=== PATIENT | female | born 1945 | race Caucasian/White ===

== ENCOUNTER 2018-11-29 10:55 | Inpatient (IN) | payer MEDICARE ==
[~2018-11-29] VITALS: Ht 154.9 cm; Wt 64.0 kg
[2018-11-29] VITALS (12 sets, daily range): BP systolic 85–105; BP diastolic 49–61
--- NOTE | 2018-11-29 11:26 | NUR ---
DR WOLFE GAVE VERBAL ORDER TO CONTINUE THE 700 UNITS/HR OF HEPARIN
[2018-11-29] MEDS ORDERED: heparin 25,000 UNIT/250ml bag 250 ML IV SCH ×2 (11:29→16:17)
[2018-11-29] MEDS ORDERED: morphine 4 MG/ML inj SYRINge IV ONE (11:30)
[2018-11-29] MEDS ORDERED: heparin 10,000 units/1 ML INJ IV PRN (11:30)
[2018-11-29] MEDS ORDERED: ondansetron/PF 4mg/2ml inj IV ONE (11:30)
[2018-11-29] MEDS ORDERED: heparin 10,000 units/1 ML INJ IV ONE (11:30)
[2018-11-29] MEDS ORDERED: magnesium Cl slow-release 64mg tablet PO PRN (11:55)
[2018-11-29] MEDS ORDERED: mag hydrox/Alum hydrox/simeth 30ml oral suspension PO PRN (11:55)
[2018-11-29] MEDS ORDERED: nitroGLYCERIN 0.4mg SUBLingual tab SL PRN (11:55)
[2018-11-29] MEDS ORDERED: potassium CL 10mEq/100ml bag 100 ML IV PRN ×4 (11:55→16:05)
[2018-11-29] MEDS ORDERED: metoprolol tartrate 1mg/ml inj IV ONE (11:55)
[2018-11-29] MEDS ORDERED: magnesium 4gm in 100ml NS 100 ML IV PRN (11:55)
[2018-11-29] MEDS ORDERED: acetaminophen 325mg tablet PO PRN ×3 (11:55→16:05)
[2018-11-29] MEDS ORDERED: morphine 2 MG/ML inj. syringe IV PRN ×3 (11:55→16:05)
[2018-11-29] MEDS ORDERED: nitroGLYCERIN-Tridil 50MG/D5W 250 ML IV PRN (11:55)
[2018-11-29] MEDS ORDERED: ondansetron/PF 4mg/2ml inj IV PRN ×2 (11:55→16:05)
[2018-11-29] MEDS ORDERED: magnesium hydroxide 30ml (MOM) UD suspension PO PRN (11:55)
[2018-11-29] MEDS ORDERED: magnesium 2GM in 50ml NS 50 ML IV PRN (11:55)
[2018-11-29] MEDS ORDERED: potassium Cl 20 mEq SR tablet PO PRN ×4 (11:55→16:05)
--- NOTE | 2018-11-29 11:58 | NUR ---
DR GREEN AT THE BEDSIDE
[2018-11-29] MEDS ORDERED: ZOLP10TA5 PO (12:11)
[2018-11-29] MEDS ORDERED: CHOL2000 PO (12:11)
[2018-11-29] MEDS ORDERED: FLUO20CA39 PO (12:11)
[2018-11-29] MEDS ORDERED: AMIT-189 PO (12:11)
[2018-11-29] MEDS ORDERED: OMEP40CA13 PO (12:11)
[2018-11-29] MEDS ORDERED: ARIP10TA15 PO (12:11)
[2018-11-29 12:12] LABS: BASOPHILS # (AUTO) 0.1 X10'3 (0-0.2); BASOPHILS % (AUTO) 0.4 % (0-1); EOSINOPHILS % (AUTO) 0 % (0-6); HEMATOCRIT 48.3 % (35.0-45.0); HEMOGLOBIN 16.1 g/dl (12.0-16.0); LYMPHOCYTES # (AUTO) 0.8 X10'3 (1.1-4.8); LYMPHOCYTES % (AUTO) 4.7 % (21-51); MEAN CORPUSCULAR HEMOGLOBIN 32.7 PG (27.0-31.0); MEAN CORPUSCULAR HGB CONC 33.4 g/dL (33.0-36.5); MEAN PLATELET VOLUME 7.6 FL (7.4-10.4); MONOCYTES # (AUTO) 1.1 X10'3 (0-0.9); MONOCYTES % (AUTO) 6.7 % (2-12); NEUTROPHILS # (AUTO) 14.5 X10'3 (1.8-7.7); NEUTROPHILS % (AUTO) 88.2 % (42-75); PLATELET COUNT 308 X10'3 (140-440); RED BLOOD COUNT 4.93 X10'6 (4.20-5.60); RED CELL DISTRIBUTION WIDTH 13.3 % (11.5-14.5); WHITE BLOOD COUNT 16.5 X10'3 (4.5-11.0)
[2018-11-29] MEDS: normal saline 1000ml 1,000 ML IV SCH ×3 (12:19→22:22)
[2018-11-29 12:47] LABS: PARTIAL THROMBOPLASTIN TIME > 139 SECONDS (22-32)
[2018-11-29 12:57] LABS: ALANINE AMINOTRANSFERASE 38 U/L (12-78); ALBUMIN 3.7 G/DL (3.4-5.0); ALBUMIN/GLOBULIN RATIO 0.9 (1.1-1.5); ALKALINE PHOSPHATASE 76 IU/L (46-116); ANION GAP 17 (8-16); ASPARTATE AMINO TRANSFERASE 31 U/L (10-37); BILIRUBIN,TOTAL 0.7 MG/DL (0.1-1.0); BLOOD UREA NITROGEN 13 MG/DL (7-18); BUN/CREATININE RATIO 9.6 (6.6-38.0); CALCIUM 9.8 MG/DL (8.5-10.1); CHLORIDE 104 MMOL/L (99-107); CHOL/HDL RATIO 2.2 (0.00-4.99); CHOLESTEROL 214 MG/DL (0-200); CREATININE 1.36 MG/DL (0.40-0.90); GLUCOSE 145 MG/DL (70-104); HDL CHOLESTEROL 97 MG/DL (35-60); LDL CHOLESTEROL 98 MG/DL (50-100); MAGNESIUM 1.5 MG/DL (1.5-2.4); POTASSIUM 4.8 MMOL/L (3.5-5.1); SODIUM 135 MMOL/L (135-145); TRIGLYCERIDES 50 MG/DL (20-135); eGFR 38 ML/MIN
[2018-11-29] MEDS ORDERED: fentaNYL/PF 50MCG/1 ML 2ML syringe ONE (13:05)
[2018-11-29] MEDS ORDERED: midazolam 2 mg/2 ml injection ONE (13:05)
[2018-11-29 13:06] LABS: TOTAL CARBON DIOXIDE 14.1 MMOL/L (24-32)
[2018-11-29] MEDS ORDERED: LIDOcaine 1% (10mg/ml)w/preservative injection 20ml MDV ONE (13:53)
[2018-11-29] MEDS ORDERED: iohexol 350MG/ML 100ml bottle IV ONE (13:54)
[2018-11-29] MEDS ORDERED: iohexol 350 MG/ML 50ML vial IV ONE (13:54)
--- NOTE | 2018-11-29 14:15 | NUR ---
Pt. to room 2007 from minilab operator. Waylon MCGRAW at bedside to give report. Pt. has angioseal to right groin. Dressing CDI. VSS.
[2018-11-29] MEDS ORDERED: proCHLORperazine 10 MG/2 ml inj IV PRN (14:25)
[2018-11-29] MEDS ORDERED: OXAZEpam 15mg capsule PO PRN (14:25)
[2018-11-29 14:55] LABS: HEMOGLOBIN A1C 5.5 % (4.5-6.2)
[2018-11-29] MEDS ORDERED: morphine 4 MG/ML inj SYRINge IV PRN (16:05)
[2018-11-29] MEDS ORDERED: HYDROcodone/acetaminophen 5mg/325mg tablet PO PRN (16:05)
[2018-11-29 17:19] LABS: ALANINE AMINOTRANSFERASE 32 U/L (12-78); ALBUMIN/GLOBULIN RATIO 0.8 (1.1-1.5); ALKALINE PHOSPHATASE 61 IU/L (46-116); ANION GAP 14 (8-16); ASPARTATE AMINO TRANSFERASE 28 U/L (10-37); BILIRUBIN,TOTAL 0.6 MG/DL (0.1-1.0); BLOOD UREA NITROGEN 14 MG/DL (7-18); BUN/CREATININE RATIO 10.4 (6.6-38.0); CALCIUM 9.6 MG/DL (8.5-10.1); CHLORIDE 106 MMOL/L (99-107); CREATININE 1.35 MG/DL (0.40-0.90); GLUCOSE 120 MG/DL (70-104); POTASSIUM 4.9 MMOL/L (3.5-5.1); SODIUM 137 MMOL/L (135-145); TOTAL CARBON DIOXIDE 17.5 MMOL/L (24-32); TOTAL PROTEIN 6.7 G/DL (6.4-8.2); eGFR 38 ML/MIN
[2018-11-29] MEDS: HYDROcodone/acetaminophen 5mg/325mg tablet PO PRN (18:15)
--- NOTE | 2018-11-29 18:20 | NUR ---
Patient in room CICU 2007. I have received report from MARILUZ Johnson and had the opportunity to ask questions and assume patient care. Patient is sitting up in bed talking to friend, she is A&O x3, HELLER and is appropriate. She is complaining of some chest pain 09/02, I have just given her a [place]. I will continue to monitor.
[2018-11-29] MEDS ORDERED: zolpidem 5mg tablet PO PRN (19:35)
[2018-11-29] MEDS ORDERED: glucagon, human recombinant 1mg kit SUBCUT PRN (19:50)
[2018-11-29] MEDS ORDERED: dextrose 50%-water 50ml dispensing syringe IV PRN ×2 (19:50)
[2018-11-29] MEDS ORDERED: MESSAGE TO PHARMACY PO ONE (19:50)
[2018-11-29] MEDS ORDERED: insulin Lispro (HumaLOG) vial - multi-dose SQ SCH (19:50)
[2018-11-29] MEDS ORDERED: dextrose ORAL solution 15 GM/59 ML bottle PO PRN ×2 (19:50)
[2018-11-29] MEDS: docusate sod 100mg capsule PO SCH (20:00)
--- NOTE | 2018-11-29 20:00 | NUR ---
Took Pt to CT in wheelchair w/o problem.
--- NOTE | 2018-11-29 20:21 | NUR ---
Back from CT, patient resting comfortably in bed. Reports no chest pain.
[2018-11-29] MEDS: sennosides/docusate sodium tablet PO SCH (20:22)
[2018-11-29] MEDS: insulin glargine (Lantus) pen - multi-dose SQ SCH (20:22)
[2018-11-29] MEDS: amitriptyline 25mg tablet PO SCH (21:11)
[2018-11-29] MEDS: heparin, porcine 5000 units/ml vial SQ SCH (21:12)
[2018-11-30] VITALS (16 sets, daily range): BP systolic 91–124; BP diastolic 45–95
[2018-11-30 05:11] LABS: BASOPHILS % (AUTO) 0.4 % (0-1); EOSINOPHILS % (AUTO) 0.3 % (0-6); HEMATOCRIT 39.9 % (35.0-45.0); HEMOGLOBIN 13.5 g/dl (12.0-16.0); LYMPHOCYTES # (AUTO) 0.9 X10'3 (1.1-4.8); LYMPHOCYTES % (AUTO) 12.5 % (21-51); MEAN CORPUSCULAR HEMOGLOBIN 33.2 PG (27.0-31.0); MEAN CORPUSCULAR HGB CONC 33.8 g/dL (33.0-36.5); MEAN CORPUSCULAR VOLUME 98.1 FL (78-98); MEAN PLATELET VOLUME 7.9 FL (7.4-10.4); NEUTROPHILS # (AUTO) 5.4 X10'3 (1.8-7.7); NEUTROPHILS % (AUTO) 73.8 % (42-75); PLATELET COUNT 205 X10'3 (140-440); RED BLOOD COUNT 4.07 X10'6 (4.20-5.60); RED CELL DISTRIBUTION WIDTH 13.4 % (11.5-14.5); WHITE BLOOD COUNT 7.3 X10'3 (4.5-11.0)
[2018-11-30] MEDS: normal saline 1000ml 1,000 ML IV SCH (05:25)
[2018-11-30 05:36] LABS: ABG BASE EXCESS -15.6 mmol/L (-2.0-3.0); ABG HCO3 11.4 mmol/L (22.0-26.0); ABG OXYGEN SATURATION 95.7 % (95-98); ABG PCO2 (T) 31.3 mmHg (35.0-45.0); ABG PH (T) 7.181 (7.350-7.450); ABG PO2 (T) 85.9 mmHg (83-108); FCOHb 0.5 % (0.5-1.5); FLOW 2 L/min; FMetHb 0.3 % (0.3-1.12); FO2Hb 94.9 % (94-100); TOTAL HEMOGLOBIN 14.7 G/dl (12.0-16.0)
[2018-11-30 05:47] LABS: ALANINE AMINOTRANSFERASE 27 U/L (12-78); ALBUMIN 2.6 G/DL (3.4-5.0); ALBUMIN/GLOBULIN RATIO 0.7 (1.1-1.5); ALKALINE PHOSPHATASE 54 IU/L (46-116); ANION GAP 9 (8-16); ASPARTATE AMINO TRANSFERASE 22 U/L (10-37); BILIRUBIN,TOTAL 0.6 MG/DL (0.1-1.0); BLOOD UREA NITROGEN 13 MG/DL (7-18); BUN/CREATININE RATIO 10.5 (6.6-38.0); C-REACTIVE PROTEIN 17.93 MG/DL (0.0-0.5); CALCIUM 9.5 MG/DL (8.5-10.1); CHLORIDE 108 MMOL/L (99-107); CREATINE KINASE 94 U/L (26-192); CREATININE 1.24 MG/DL (0.40-0.90); GLUCOSE 98 MG/DL (70-104); MAGNESIUM 1.6 MG/DL (1.5-2.4); POTASSIUM 3.9 MMOL/L (3.5-5.1); SODIUM 138 MMOL/L (135-145); TOTAL CARBON DIOXIDE 21.2 MMOL/L (24-32); TOTAL PROTEIN 6.1 G/DL (6.4-8.2); eGFR 42 ML/MIN
[2018-11-30 05:50] LABS: TROPONIN I 3.39 NG/ML (0.0-0.05)
--- NOTE | 2018-11-30 06:15 | NUR ---
Received patient report from NOC shift RN. Patient sleeping at this time. No apparent distress noted. Will continue to monitor.
[2018-11-30] MEDS: vitamin D (cholecalciferol) 1,000 unit tablet PO SCH (07:56)
[2018-11-30] MEDS: ARIPIPRAZOLE 10 MG TABLET PO SCH (07:57)
[2018-11-30] MEDS: FLUoxetine 20mg capsule PO SCH (07:57)
[2018-11-30] MEDS: docusate sod 100mg capsule PO SCH ×2 (08:00→19:48)
[2018-11-30] MEDS: K and/or MAG REPLACEMENT MC SCH (08:00)
[2018-11-30] MEDS: pantoprazole 40mg Tablet.DR PO SCH (08:01)
[2018-11-30] MEDS: heparin, porcine 5000 units/ml vial SQ SCH ×2 (08:01→19:49)
[2018-11-30 08:38] LABS: CLARITY,URINE CLOUDY (Clear); COLOR,URINE YELLOW (Yellow); GLUCOSE, URINE NEGATIVE (Neg); KETONES,URINE 40 mg/dl (Neg); LEUKOCYTE ESTERASE ,URINE SMALL (Neg); NITRITES, URINE NEGATIVE (Neg); OCCULT BLOOD,URINE SMALL (Neg); PROTEIN,URINE TRACE mg/dl (Neg); UROBILINOGEN,URINE 0.2 E.U/dL (0.2-1.0)
[2018-11-30 08:40] LABS: UA COLLECTION TYPE NON-SPECIFIED
[2018-11-30 08:47] LABS: SQUAMOUS EPITHELIAL CELL,UR MANY /LPF (FEW)
[2018-11-30 08:49] LABS: HYALINE CASTS 0-3 /LPF (NEGATIVE)
[2018-11-30 08:50] LABS: RBC,URINE 0-2 /HPF (0-2); WBC,URINE 30-50 /HPF (0-4)
[2018-11-30 08:52] LABS: BACTERIA,URINE FEW /HPF (Neg)
[2018-11-30 10:05] LABS: UA EOSINOPHILS NO EOS /HPF
[2018-11-30] MEDS: loperamide 2mg capsule PO SCH (12:37)
--- NOTE | 2018-11-30 13:35 | NUR ---
Order to transfer patient to telemetry. Called and gave report to MARILUZ Alamo on PCU. Tele monitor applied to patient. Patient transported via tech to [facility] for imaging study.
--- NOTE | 2018-11-30 17:44 | NUR ---
Informed primary RNCally of patients blood sugar.
--- NOTE | 2018-11-30 18:00 | NUR ---
Patient in room PCU 3014. I have received report from Chava and had the opportunity to ask questions and assume patient care.
--- NOTE | 2018-11-30 18:32 | NUR ---
Problems reprioritized. Patient report given, questions answered & plan of care reviewed with Caro MCGRAW. Patient stable at transfer of care.
[2018-11-30] MEDS: HYDROcodone/acetaminophen 5mg/325mg tablet PO PRN (19:44)
[2018-11-30] MEDS: amitriptyline 25mg tablet PO SCH (20:38)
[2018-11-30] MEDS: carVEDilol 3.125mg tablet PO SCH (20:38)
[2018-11-30] MEDS: sennosides/docusate sodium tablet PO SCH (21:00)
[2018-11-30] MEDS: insulin glargine (Lantus) pen - multi-dose SQ SCH (21:00)
[2018-12-01 02:00] VITALS: BP 97/52
[2018-12-01 05:44] LABS: BASOPHILS % (AUTO) 0.9 % (0-1); EOSINOPHILS # (AUTO) 0.1 X10'3 (0-0.9); EOSINOPHILS % (AUTO) 1.5 % (0-6); HEMATOCRIT 32.6 % (35.0-45.0); HEMOGLOBIN 11.2 g/dl (12.0-16.0); LYMPHOCYTES # (AUTO) 0.9 X10'3 (1.1-4.8); LYMPHOCYTES % (AUTO) 17.8 % (21-51); MEAN CORPUSCULAR HEMOGLOBIN 33.5 PG (27.0-31.0); MEAN CORPUSCULAR HGB CONC 34.4 g/dL (33.0-36.5); MEAN CORPUSCULAR VOLUME 97.5 FL (78-98); MONOCYTES # (AUTO) 0.5 X10'3 (0-0.9); MONOCYTES % (AUTO) 10.3 % (2-12); NEUTROPHILS # (AUTO) 3.4 X10'3 (1.8-7.7); NEUTROPHILS % (AUTO) 69.5 % (42-75); PLATELET COUNT 197 X10'3 (140-440); RED BLOOD COUNT 3.34 X10'6 (4.20-5.60); WHITE BLOOD COUNT 4.9 X10'3 (4.5-11.0)
--- NOTE | 2018-12-01 06:34 | NUR ---
Problems reprioritized. Patient report given, questions answered & plan of care reviewed with Cally MCGRAW.
[2018-12-01 06:37] LABS: ALANINE AMINOTRANSFERASE 22 U/L (12-78); ALBUMIN 2.4 G/DL (3.4-5.0); ALBUMIN/GLOBULIN RATIO 0.8 (1.1-1.5); ALKALINE PHOSPHATASE 44 IU/L (46-116); ANION GAP 12 (8-16); ASPARTATE AMINO TRANSFERASE 16 U/L (10-37); BILIRUBIN,TOTAL 0.5 MG/DL (0.1-1.0); BLOOD UREA NITROGEN 9 MG/DL (7-18); BUN/CREATININE RATIO 9.2 (6.6-38.0); CALCIUM 9.8 MG/DL (8.5-10.1); CHLORIDE 111 MMOL/L (99-107); CHOL/HDL RATIO 2.3 (0.00-4.99); CHOLESTEROL 132 MG/DL (0-200); CREATININE 0.98 MG/DL (0.40-0.90); GLUCOSE 99 MG/DL (70-104); HDL CHOLESTEROL 57 MG/DL (35-60); LDL CHOLESTEROL 52 MG/DL (50-100); MAGNESIUM 1.6 MG/DL (1.5-2.4); PHOSPHORUS 1.5 MG/DL (2.3-4.5); POTASSIUM 3.9 MMOL/L (3.5-5.1); SODIUM 144 MMOL/L (135-145); TOTAL CARBON DIOXIDE 21.4 MMOL/L (24-32); TOTAL PROTEIN 5.5 G/DL (6.4-8.2); TRIGLYCERIDES 118 MG/DL (20-135); eGFR 55 ML/MIN
--- NOTE | 2018-12-01 06:44 | NUR ---
Patient in room PCU 3014. I have received report from Caro MCGRAW and had the opportunity to ask questions and assume patient care.
[2018-12-01 07:09] VITALS: BP 109/59
[2018-12-01] MEDS: K and/or MAG REPLACEMENT MC SCH (08:00)
[2018-12-01] MEDS: docusate sod 100mg capsule PO SCH (08:00)
[2018-12-01] MEDS ORDERED: aspirin 81mg tab.chew PO SCH (08:30)
[2018-12-01] MEDS: FLUoxetine 20mg capsule PO SCH (08:36)
[2018-12-01] MEDS: heparin, porcine 5000 units/ml vial SQ SCH (08:37)
[2018-12-01] MEDS: HYDROcodone/acetaminophen 5mg/325mg tablet PO PRN (08:38)
[2018-12-01] MEDS: carVEDilol 3.125mg tablet PO SCH (08:38)
[2018-12-01] MEDS: loperamide 2mg capsule PO SCH (08:38)
[2018-12-01] MEDS: vitamin D (cholecalciferol) 1,000 unit tablet PO SCH (08:38)
[2018-12-01] MEDS: pantoprazole 40mg Tablet.DR PO SCH (08:39)
[2018-12-01] MEDS: ARIPIPRAZOLE 10 MG TABLET PO SCH (08:44)
[2018-12-01 11:00] VITALS: BP 140/76
[2018-12-01] MEDS ORDERED: LISI-604 PO (13:03)
[2018-12-01] MEDS ORDERED: COR3.125T PO (13:03)
[2018-12-01] MEDS ORDERED: ASPI-1265 PO (13:03)
[2018-12-01] MEDS ORDERED: CEFD300C3 PO (13:05)
--- NOTE | 2018-12-01 13:41 | NUR ---
Paged Dr. Jaramillo PAGER ID: [phone] MESSAGE: Shimon [phone], Brendan. Patient's family is here and would like to speak with you before she is discharged. Thank you. Cally [phone]
--- NOTE | 2018-12-01 14:05 | NUR ---
PAGER ID: [phone] MESSAGE: Shimon ShantellBrendan ohffmann. Patient family has some questions for you before the patient is discharged. Thank you Cally [phone]
--- NOTE | 2018-12-01 15:20 | NUR ---
Discharged at 1507 home with family. Discharge packet and patient education reviewed before signing. All belongings sent home with patient. Telemetry monitoring DCed, PIV DCed with cannula intact. Rx called in to [facility] in [place]. Patient stable at discharge. Wheeled down by staff and left by private vehicle.
== END 2018-12-01 15:08 | disposition home or self-care (01) | DRG 280 ==
LOC: ER 10:56 → ED HOLD 13:32 → CICU 2S 14:00 → PCU 3S 11-30 15:06
PROVIDERS: ADMIT Hospitalist; ATTEND Family Medicine
PROC: 4A023N7 Measurement of Cardiac Sampling and Pressure, Left Heart, Percutaneous Approach (ICD-10-PCS; principal; 2018-11-29)
PROC: B2111ZZ Fluoroscopy of Multiple Coronary Arteries using Low Osmolar Contrast (ICD-10-PCS; 2018-11-29)
PROC: B2151ZZ Fluoroscopy of Left Heart using Low Osmolar Contrast (ICD-10-PCS; 2018-11-29)
PROC: CB121ZZ Planar Nuclear Medicine Imaging of Lungs and Bronchi using Technetium 99m (Tc-99m) (ICD-10-PCS; 2018-11-30)
DX: I51.81 Takotsubo syndrome (principal); I50.21 Acute systolic (congestive) heart failure; I21.4 Non-ST elevation (NSTEMI) myocardial infarction; N17.9 Acute kidney failure, unspecified; E87.2 Acidosis; R57.9 Shock, unspecified; F12.90 Cannabis use, unspecified, uncomplicated; R73.9 Hyperglycemia, unspecified; F32.9 Major depressive disorder, single episode, unspecified; I11.0 Hypertensive heart disease with heart failure; Z79.899 Other long term (current) drug therapy; Z90.5 Acquired absence of kidney; Z90.710 Acquired absence of both cervix and uterus; Z90.49 Acquired absence of other specified parts of digestive tract
CPT/HCPCS: 36415; 36600; 71250; 74176; 78582; 80053; 80061; 80329; 81001; 82550; 82553; 82570; 82803; 82948; 83036; 83605; 83735; 83880; 84100; 84145; 84300; 84484; 85018; 85025; 85610; 85651; 85730; 86140; 87040; 87081; 87207; 93005; 93306; 93458; 96374; 96375; 97110; 97161; 97530; 99152; 99153; 99291; A4620; A6258; A9539; A9540; C1760; C1769; G0378; J1644; J1815; J2001; J2250; J2270; J2405; J3010; J3490; Q9967

== ENCOUNTER 2018-12-04 01:36 | Inpatient (IN) | payer MEDICARE ==
[~2018-12-04] VITALS: Ht 154.9 cm; Wt 63.6 kg
[~2018-12-04 01:36] MED LIST: AMIT-189 PO; ARIP10TA15 PO; ASPI-1265 PO; CEFD300C3 PO; CHOL2000 PO; COR3.125T PO; FLUO20CA39 PO; LISI-604 PO; OMEP40CA13 PO; ZOLP10TA5 PO
[2018-12-04 01:51] LABS: BASOPHILS # (AUTO) 0.1 X10'3 (0-0.2); BASOPHILS % (AUTO) 0.8 % (0-1); EOSINOPHILS # (AUTO) 0.2 X10'3 (0-0.9); HEMATOCRIT 38.7 % (35.0-45.0); HEMOGLOBIN 13.3 g/dl (12.0-16.0); LYMPHOCYTES # (AUTO) 0.9 X10'3 (1.1-4.8); LYMPHOCYTES % (AUTO) 10.7 % (21-51); MEAN CORPUSCULAR HEMOGLOBIN 33.5 PG (27.0-31.0); MEAN CORPUSCULAR HGB CONC 34.3 g/dL (33.0-36.5); MEAN CORPUSCULAR VOLUME 97.6 FL (78-98); MONOCYTES # (AUTO) 0.5 X10'3 (0-0.9); NEUTROPHILS # (AUTO) 6.9 X10'3 (1.8-7.7); NEUTROPHILS % (AUTO) 80.5 % (42-75); PLATELET COUNT 276 X10'3 (140-440); RED BLOOD COUNT 3.96 X10'6 (4.20-5.60); RED CELL DISTRIBUTION WIDTH 13.2 % (11.5-14.5); WHITE BLOOD COUNT 8.5 X10'3 (4.5-11.0)
[2018-12-04 02:06] LABS: ALANINE AMINOTRANSFERASE 34 U/L (12-78); ALBUMIN 3.2 G/DL (3.4-5.0); ALBUMIN/GLOBULIN RATIO 0.8 (1.1-1.5); ALKALINE PHOSPHATASE 56 IU/L (46-116); ANION GAP 10 (8-16); ASPARTATE AMINO TRANSFERASE 32 U/L (10-37); BILIRUBIN,TOTAL 0.4 MG/DL (0.1-1.0); BLOOD UREA NITROGEN 10 MG/DL (7-18); BUN/CREATININE RATIO 7.6 (6.6-38.0); CHLORIDE 106 MMOL/L (99-107); CREATININE 1.31 MG/DL (0.40-0.90); GLUCOSE 208 MG/DL (70-104); POTASSIUM 3.5 MMOL/L (3.5-5.1); SODIUM 140 MMOL/L (135-145); TOTAL CARBON DIOXIDE 23.7 MMOL/L (24-32); eGFR 40 ML/MIN
[2018-12-04 02:09] LABS: PARTIAL THROMBOPLASTIN TIME 23 SECONDS (22-32)
[2018-12-04] MEDS ORDERED: enoxaparin 100mg/ml syringe SUBCUT ONE (02:55)
[2018-12-04] MEDS ORDERED: heparin 25,000 UNIT/250ml bag 250 ML IV SCH (02:55)
[2018-12-04] MEDS ORDERED: aspirin 81mg tab.chew PO ONE (02:55)
[2018-12-04] MEDS ORDERED: heparin 10,000 units/1 ML INJ IV ONE (02:55)
[2018-12-04] MEDS ORDERED: heparin 10,000 units/1 ML INJ IV PRN ×2 (02:55→03:35)
[2018-12-04] MEDS ORDERED: enalaprilat dihydrate 2.5mg/2ml vial IV ONE (03:00)
[2018-12-04] MEDS ORDERED: nitroGLYCERIN-Tridil 50MG/D5W 250 ML IV ONE ×2 (03:00→03:05)
--- NOTE | 2018-12-04 04:03 | NUR ---
NTG discontinued after speaking with pharmacist.
[2018-12-04] MEDS ORDERED: magnesium hydroxide 30ml (MOM) UD suspension PO PRN (04:05)
[2018-12-04] MEDS ORDERED: mag hydrox/Alum hydrox/simeth 30ml oral suspension PO PRN (04:05)
[2018-12-04] MEDS ORDERED: zolpidem 5mg tablet PO PRN (04:05)
[2018-12-04] MEDS ORDERED: acetaminophen 325mg tablet PO PRN (04:05)
[2018-12-04] MEDS ORDERED: ondansetron/PF 4mg/2ml inj IV PRN (04:05)
[2018-12-04 05:00] VITALS: BP 110/63
[2018-12-04 06:00] VITALS: BP 107/67
--- NOTE | 2018-12-04 06:15 | NUR ---
Patient in room PCU 3013. I have received report from MARILUZ Chappell and had the opportunity to ask questions and assume patient care.
[2018-12-04] MEDS ORDERED: pantoprazole 40mg Tablet.DR PO SCH (07:30)
[2018-12-04] MEDS ORDERED: vitamin D (cholecalciferol) 1,000 unit tablet PO SCH (08:00)
[2018-12-04] MEDS ORDERED: FLUoxetine 20mg capsule PO SCH (08:00)
[2018-12-04] MEDS ORDERED: heparin, porcine 5000 units/ml vial SQ SCH (08:00)
[2018-12-04] MEDS ORDERED: aripiprazole 5mg tablet PO SCH (08:00)
[2018-12-04] MEDS ORDERED: lisinopril 5mg tablet PO SCH (08:00)
[2018-12-04] MEDS ORDERED: carVEDilol 3.125mg tablet PO SCH (08:00)
[2018-12-04] MEDS ORDERED: aspirin 81mg tab.chew PO SCH (08:30)
[2018-12-04] MEDS ORDERED: cefpodoxime proxetil 100mg tablet PO SCH (08:30)
[2018-12-04 11:00] VITALS: BP 125/68
[2018-12-04] MEDS ORDERED: ALBU8.5H8 INH (11:28)
[2018-12-04] MEDS ORDERED: CARV-49 PO (11:28)
--- NOTE | 2018-12-04 12:09 | NUR ---
Malnutrition consult. Patient is a 73 year old female with BMI 26.5; reports unintentional weight loss between 2-13 lbs and eating less d/t poor appetite. She was recently admitted with Takotsubo cardiomyopathy 11/29/18-12/01/18; at that time she was eating 25-49% documented for two days of her admission. No edema. No weight change is patient's stated weight. Patient seen at bedside and did report she has been unable to eat well for the past two weeks as every time she attempts to eat her gag reflex kicks in. Reports weight now is 140, which is consistent with patient stated weight. Reports that in the past six years her weight went from 120 lbs to 160 lbs as a result from eating many comfort foods in view of her 's illness and passing. Pt reports that since she has started loosing the weight and is now 140 lbs. Pt reports diarrhea for a year, states that her MD recommended her to take immodium daily. Discussed the BRAT diet and other foods to help mitigate diarrhea and thicken stools. Appears well nourished, weight is stable now despite the fluctuations in the past several years. Encouraged patient to speak with her MD regarding her gag reflex, history of hiatal hernia surgery two years ago. Patient pending discharge today. Addendum: 12/04/18 at [address] Amended: Links added.
--- NOTE | 2018-12-04 15:54 | NUR ---
Pt discharged to home via private car. All belongings, and discharge paperwork is signed. She has follow up instructions to f/u with Cardiologists. She is A&Ox4 and in no apparent distress.
[2018-12-04] MEDS ORDERED: lactobacillus rhamnosus 10,000 MMU CELLS/CAPSULE PO SCH (20:00)
[2018-12-04] MEDS ORDERED: amitriptyline 25mg tablet PO SCH (21:00)
== END 2018-12-04 15:23 | disposition home or self-care (01) | DRG 281 ==
LOC: ER 01:37 → ED HOLD 04:43 → PCU 3S 04:50
PROVIDERS: ADMIT Internal Medicine; ATTEND Family Medicine
DX: I21.4 Non-ST elevation (NSTEMI) myocardial infarction (principal); I51.81 Takotsubo syndrome; I50.9 Heart failure, unspecified; F41.9 Anxiety disorder, unspecified; N28.9 Disorder of kidney and ureter, unspecified; Z79.82 Long term (current) use of aspirin; Z95.1 Presence of aortocoronary bypass graft
CPT/HCPCS: 36415; 71045; 80053; 83880; 84484; 85025; 85610; 85730; 87081; 93005; 96374; 96375; 99291; G0378; J1644; J3490